=== PATIENT | female | born 1950 | race Caucasian/White ===

== ENCOUNTER 2017-05-16 06:49 | Day surgery (SDC) | payer MEDICARE, OTHER ==
[2017-05-16] VITALS (9 sets, daily range): BP systolic 126–185; BP diastolic 60–99; PULSE 50–74; TEMP 97.7
[~2017-05-16] VITALS: Ht 162.6 cm; Wt 82.3 kg
[~2017-05-16 06:49] MED LIST: ASPIRIN E.C. 8181 MG PO; NICODERM C21 MG/PATC TOP; PRAVACHOL 20MG20 MG PO; PRILOSEC 20MG20 MG PO
[2017-05-16] MEDS ORDERED: CRESTOR20 MG PO (07:29)
[2017-05-16 07:49] LABS: HEMATOCRIT 43.3 % (37.0-47.0); HEMOGLOBIN 14.5 g/dl (12.5-16.0); MEAN CELL VOLUME 98 fl (80.0-100.0); MEAN CORPUSCULAR HEMOGLOBIN 33 pg (27.0-31.0); MEAN CORPUSCULAR HGB CONC 34 g/dl (33.0-37.0); MEAN PLATELET VOLUME 10.9 fl (7.4-10.4); PLATELET COUNT 179 K/mm3 (130-400); RED BLOOD COUNT 4.44 M/mm3 (4.10-5.30); WHITE BLOOD COUNT 7.6 K/mm3 (4.8-10.8)
[2017-05-16 07:56] LABS: PROTHROMBIN TIME 11.2 SECONDS (9.7-12.8)
[2017-05-16 08:01] LABS: CALCIUM 9.3 mg/dL (8.4-10.2); CREATININE, serum 0.84 mg/dL (0.52-1.25); POTASSIUM 4.3 mmol/L (3.4-5.0)
[2017-05-16] MEDS ORDERED: LIPITOR 80MG80 MG PO (12:15)
[2017-05-16] MEDS ORDERED: PLAVIX 75MG TAB75 MG PO (12:15)
[2017-05-16] MEDS ORDERED: LOPRESSOR 550 MG/TAB PO (12:16)
== END 2017-05-16 13:34 | disposition home or self-care (01) ==
LOC: COL.CAR 06:49
PROVIDERS: Internal Medicine Interventional Cardiology
DX: I25.10 Atherosclerotic heart disease of native coronary artery without angina pectoris (principal); R94.39 Abnormal result of other cardiovascular function study; I83.893 Varicose veins of bilateral lower extremities with other complications; I10 Essential (primary) hypertension; E78.5 Hyperlipidemia, unspecified; F17.210 Nicotine dependence, cigarettes, uncomplicated; Z82.49 Family history of ischemic heart disease and other diseases of the circulatory system; Z80.9 Family history of malignant neoplasm, unspecified
CPT/HCPCS: C1760; J2250; J3010; Q9967

== ENCOUNTER → 2021-04-09 | Outpatient (CLI) | payer MEDICARE, OTHER ==
[~2021-04-09] MED LIST changes: +CRESTOR20 MG PO; +LIPITOR 80MG80 MG PO; +LOPRESSOR 550 MG/TAB PO; +PLAVIX 75MG TAB75 MG PO
== END ==
LOC: MHCPAIN 10:00
DX: M47.817 Spondylosis without myelopathy or radiculopathy, lumbosacral region (principal); M54.5 Low back pain; M53.3 Sacrococcygeal disorders, not elsewhere classified; G89.29 Other chronic pain
CPT/HCPCS: G0463